=== PATIENT | female | born 1980 | race Caucasian/White ===

== ENCOUNTER 2020-04-01 04:20 | Emergency (ER) | payer OTHER ==
[~2020-04-01] VITALS: Ht 182.9 cm; Wt 81.7 kg
[2020-04-01] MEDS ORDERED: XANAX2 MG (04:25)
[2020-04-01] MEDS ORDERED: PAXIL20 MG (04:26)
[2020-04-01] MEDS ORDERED: INDERAL LA120 M1 (04:26)
[2020-04-01 04:49] LABS: ABSOLUTE LYMPHOCYTES 1.4 thou/uL (0.8-5.3); ABSOLUTE MONOCYTES 0.5 thou/uL (0.0-1.2); ABSOLUTE NEUTROPHILS 4.1 thou/uL (1.6-8.1); BASOPHILS 0.6 %; EOSINOPHILS 0.6 %; HEMATOCRIT 41.9 % (37.0-47.0); HEMOGLOBIN 14.1 gm/dL (12.0-15.0); LYMPHOCYTES 22.8 %; MCHC 33.7 g/dL (28.0-37.0); MCV 92.1 fL (80.0-100.0); MONOCYTES 7.5 %; MPV 8.5 fl. (7.2-11.1); NUCLEATED RBCS 0 /100WBC; PLATELET COUNT* 220 thou/uL (150-400); POLYS 68.5 %; RBC 4.56 mil/uL (4.20-5.00); RDW-CV 13.8 % (10.5-14.5)
[2020-04-01 04:56] LABS: CALCIUM 9.7 mg/dL (8.5-10.1); POTASSIUM 3.8 mmol/L (3.5-5.1)
[2020-04-01 05:01] LABS: ALBUMIN 4.8 g/dL (3.4-5.0); TOTAL BILIRUBIN 0.4 mg/dL (<0.1-1.0)
[2020-04-01 05:10] LABS: PROTIME 10.8 Seconds (9.20-11.50)
[2020-04-01 06:47] VITALS: BP 169/73
--- NOTE | 2020-04-01 10:23 | EKG ---
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
== END 2020-04-01 06:49 | disposition home or self-care (01) ==
LOC: M.ERS 04:20
PROVIDERS: Personal Emergency Response Attendant
DX: E86.0 Dehydration (principal); R00.2 Palpitations; I48.91 Unspecified atrial fibrillation; Z88.5 Allergy status to narcotic agent; Z98.890 Other specified postprocedural states; Z79.899 Other long term (current) drug therapy